=== PATIENT | female | born 1990 | race Caucasian/White ===

== ENCOUNTER 2020-02-12 22:25 | Emergency (ER) | payer OTHER ==
[~2020-02-12] VITALS: Ht 160 cm; Wt 81.7 kg
[2020-02-13] MEDS ORDERED: MOBIC15 MG PO (01:16)
[2020-02-13] MEDS ORDERED: CYCLOBENZAPRINE5 MG PO (01:16)
[2020-02-13 01:29] VITALS: BP 113/76
== END 2020-02-13 01:33 | disposition home or self-care (01) ==
LOC: ER 22:25
DX: S09.90XA Unspecified injury of head, initial encounter (principal); M25.512 Pain in left shoulder; V43.52XA Car driver injured in collision with other type car in traffic accident, initial encounter; Y93.89 Activity, other specified; Y92.89 Other specified places as the place of occurrence of the external cause; Y99.8 Other external cause status